=== PATIENT | male | born 1990 | race Asian ===

== ENCOUNTER → 2021-07-12 08:46 | Outpatient (BNVA) | payer OTHER, SELFPAY | PROVIDERS: Visit Provider Physician Assistant Medical | DX: S60.811A Abrasion of right wrist, initial encounter (principal); S80.211A Abrasion, right knee, initial encounter; Y00.XXXA Assault by blunt object, initial encounter | CPT/HCPCS: 99202 ==

== ENCOUNTER → 2021-07-15 13:23 | Outpatient (BNVA) | payer OTHER, SELFPAY | PROVIDERS: Visit Provider Physician Assistant | DX: S80.211A Abrasion, right knee, initial encounter (principal); S63.501A Unspecified sprain of right wrist, initial encounter; Y04.2XXA Assault by strike against or bumped into by another person, initial encounter | CPT/HCPCS: 99213 ==